=== PATIENT | female | born 1940 ===

== ENCOUNTER 2018-01-25 11:35 | Emergency (ER) | payer MEDICARE, MEDICAID ==
[2018-01-25 11:38] VITALS: TEMP 98; BMI 23.3
--- NOTE | 2018-01-25 12:23 | ED PDOC ---
Arrival/HPI - General Chief Complaint: Hip Pain Time Seen by Provider: 01/25/18 11:51 Historian: Patient, Inseamer (Tosha Young) - History of Present Illness Narrative History of Present Illness (Text): 77 y/o female presents to the ED complaining of constant right hip pain, onset two weeks ago. Patient states pain is worse with movement. Patient states she was seen at [facility] yesterday for the same symptoms where an x-ray was done and an injection was given for pain. Patient was sent home with a lidocaine patch. Patient states she is here today because she feels more comfortable being treated here. Patient is able to ambulate in the ED. Denies trauma. PMD: Dr. Bridges Past Medical History - Past History Past History: No Previous - Reproductive Menopause: No - Past Medical History Past Medical History: No Previous - Cardiac Hx Hypertension: Yes - Endocrine/Metabolic Hx Diabetes Mellitus Type 2: Yes - Psychiatric Hx Substance Use: No - Past Surgical History Past Surgical History: No Previous - Anesthesia Hx Anesthesia: No Family/Social History - Physician Review Nursing Documentation Reviewed: Yes Family/Social History: Unknown Family HX Smoking Status: Never Smoked Hx Alcohol Use: No Hx Substance Use: No Allergies/Home Meds Allergies/Adverse Reactions: Allergies No Known Allergies Allergy (Verified 01/25/18 12:18) Review of Systems - Physician Review All systems were reviewed & negative as marked: Yes - Review of Systems Musculoskeletal: Other (Right hip pain) Physical Exam Vital Signs Reviewed: Yes Vital Signs Temp Pulse BP Pulse Ox 01/25/18 11:37 98 F 63 148/62 97 - Systems Exam Head: Present: Atraumatic, Normocephalic Pupils: Present: PERRL Extroacular Muscles: Present: EOMI Conjunctiva: Present: Normal Neck: Present: Normal Range of Motion Respiratory/Chest: Present: Clear to Auscultation, Good Air Exchange. No: Respiratory Distress, Accessory Muscle Use Cardiovascular: Present: Regular Rate and Rhythm. No: Murmurs Abdomen: No: Tenderness Upper Extremity: Present: Normal Inspection Lower Extremity: Present: Normal Inspection, Normal ROM (at the hip), Tenderness (to the right lateral hip). No: Edema, CALF TENDERNESS Neurological: Present: Speech Normal, Gait Normal Skin: Present: Warm, Dry, Normal Color Psychiatric: Present: Alert, Oriented x 3 Medical Decision Making ED Course and Treatment: Time: 1218 Plan: -- Hip Right [Hip Min 2V w/ Pelvis RT] Time: 1233 HIP/PELVIS XR RESULTS FINDINGS: There are no osseous abnormalities to suggest fracture. The pelvic ring is intact. Preserved femoral-acetabular relationship. Negative study for protrusio , subluxation or dislocation. Degenerative changes: Mild and unchanged IMPRESSION: No acute findings related to/accounting for the clinical presentation. No significant interval change compared to the prior examination(s). Time: 1506 -- Toradol 30 mg IM ___ Scribe Attestation: Documented by Bessie Schwarz acting as a scribe for Dr. Renata Schumacher MD. Provider Scribe Attestation: All medical record entries made by the Scribe were at my direction and personally dictated by me. I have reviewed the chart and agree that the record accurately reflects my personal performance of the history, physical exam, medical decision making, and the department course for this patient. I have also personally directed, reviewed, and agree with the discharge instructions and disposition. 01/25/18 14:35 01/25/18 14:36 01/25/18 15:50 - RAD Interpretation Radiology Orders: 01/25/18 12:18 Hip Right [HIP MIN 2V W/ PELVIS RT] [RAD] Stat - Medication Orders Current Medication Orders: Discontinued Medications Ketorolac Tromethamine (Toradol) 30 mg IM STAT STA Stop: 01/25/18 15:07 Last Admin: 01/25/18 15:17 Dose: 30 mg MAR Pain Assessment Document 01/25/18 15:17 TD (Rec: 01/25/18 15:19 TD [id number]) Pain Reassessment Is this a pain reassessment? Yes Sleep Is patient sleeping during reassessment? No Presence of Pain Presence of Pain Yes Pain Scale Used Pain Scale Used Numeric Location Left, Right or Bilateral Right Pain Location Body Site Hip Description Description Intermittent Pain Behavior Moaning IM Administration Charges Document 01/25/18 15:17 TD (Rec: 01/25/18 15:19 TD [id number]) Injection Site MAR Injection Site Right Gluteus Medius Charges for Administration # of IM Administrations 1 Disposition/Present on Arrival - Disposition Diagnosis: Hip pain Disposition: HOME/ ROUTINE Disposition Time: 15:20 Patient Problems: Current Active Problems Problem Status Onset Hip pain Acute Condition: STABLE Discharge Instructions (ExitCare): Hip Pain Print Language: J[place] Prescriptions: Naproxen [Naprosyn] 500 mg PO BID PRN #15 tablet PRN Reason: Pain, Moderate (4-7) Referrals: López Avila MD [Family Provider] - Forms: Knowrom (Lao)
--- NOTE | 2018-01-25 14:25 | RAD ---
Date of service: 01/25/2018 PROCEDURE: Pelvis and right hip HISTORY: Pain. No history of recent/ related trauma provided COMPARISON: 12/30/2017 TECHNIQUE: Standard protocol for this study/examination. FINDINGS: There are no osseous abnormalities to suggest fracture. The pelvic ring is intact. Preserved femoral-acetabular relationship. Negative study for protrusio, subluxation or dislocation. Degenerative changes: Mild and unchanged IMPRESSION: No acute findings related to/accounting for the clinical presentation. No significant interval change compared to the prior examination(s).
[2018-01-25 16:12] VITALS: BP 135/88; PULSE 69; RESP 18; O2SAT 99
== END 2018-01-25 16:12 | disposition home or self-care (01) ==
LOC: H.ER 11:35
DX: M25.551 Pain in right hip (principal); E11.9 Type 2 diabetes mellitus without complications; I10 Essential (primary) hypertension
CPT/HCPCS: 73502; 96372; 99283; J1885

== ENCOUNTER 2018-01-30 07:41 | Day surgery (SDC) | payer MEDICARE, MEDICAID ==
[2018-01-29 14:07] VITALS: BMI 24.7
[2018-01-30] MEDS ORDERED: Lactated Ringer's 1,000 ML IV ONE (09:00)
[2018-01-30] MEDS ORDERED: Lidocaine 2% MPF (5 ml) Inj ONE (09:40)
[2018-01-30] MEDS ORDERED: methylPREDNISolone Depo 80 mg/ml Inj ONE (09:40)
[2018-01-30] MEDS ORDERED: Bupivacaine HCl 0.25% PF (30 ml) Inj ONE (09:41)
[2018-01-30] MEDS ORDERED: Iohexol 300 10 ML ONE (09:41)
[2018-01-30] MEDS ORDERED: Midazolam 2 MG/2 ML VIAL ONE (09:50)
[2018-01-30] MEDS ORDERED: Propofol 10 mg/ml Inj (20 ML) ONE (09:50)
[2018-01-30] MEDS ORDERED: Bupivacaine HCl 0.25% PF (30 ml) Inj IJ ONE (09:50)
[2018-01-30] MEDS ORDERED: Lidocaine 2% MPF (5 ml) Inj INJ ONE (09:50)
[2018-01-30] MEDS ORDERED: methylPREDNISolone Depo 80 mg/ml Inj IM ONE (09:50)
[2018-01-30] MEDS ORDERED: Iohexol 300 10 ML IJ ONE (09:50)
[2018-01-30] MEDS ORDERED: Lactated Ringer's 1,000 ML IV SCH (10:15)
[2018-01-30 12:03] VITALS: O2SAT 95
[2018-01-30 12:04] VITALS: BP 149/66; PULSE 63; RESP 15; TEMP 97.4
--- NOTE | 2018-01-30 20:15 | OP ---
Copied To: Carmelo Melo MD Attending MD: Carmelo Melo MD PROCEDURE DATE: 01/30/2018 PREOPERATIVE DIAGNOSIS: Lumbar radiculopathy. POSTOPERATIVE DIAGNOSIS: Lumbar radiculopathy. PROCEDURE: Right L4-L5 and L5-S1 transforaminal epidural steroid injection. ANESTHESIOLOGIST: Dr. Ozuna SURGEON: Carmelo Melo MD TYPE OF ANESTHESIA: Monitored anesthesia care. COMPLICATIONS: None. SPECIMEN: None. DESCRIPTION OF PROCEDURE: As follows: After we had discussion of the procedure with the patient including its risks, benefits, alternatives, outcome data, and possibility of no effect or increased pain, the patient consented to the procedure. She denied any recent infection, bleeding tendencies, or being on anticoagulants. Decision was then made to proceed to the OR. The patient was placed on the fluoroscopy table in a prone position with two pillows underneath her abdomen. The back was prepped and draped in the usual sterile fashion, and a sterile technique was adhered to during the entire procedure. The L4 and L5 vertebral levels were first identified in the anteroposterior view. Angulation towards the right at approximately 20 degrees was used to maximize the visualization of the right L4 and L5 pedicles. The skin overlying the 6 o'clock position of both pedicles was then infiltrated with 1% lidocaine using a 25-gauge needle. Subsequently, a 22-gauge 5-inch spinal needle was then incrementally advanced under fluoroscopic guidance until the tip of needle walked into the intervertebral foramen. After satisfactory positioning of both needles, approximately 0.5 mL of Isovue contrast was injected showing appropriate epidural nerve root spread without any signs of CSF or intravenous involvement. The patient denies any paresthesia or pain during the injection. At this point, approximately 3 mL of 0.25% Marcaine and Depo-Medrol mixture was injected. The needle was then removed and the patient's back was cleaned and dry bandages were applied. The patient was then transferred to the recovery area in good condition without any signs of HEARINGS REPORTER toxicity or any neurological deficit. She will be following up in the office in approximately two to four weeks. Carmelo Melo MD [facility] # [id number]
--- NOTE | 2018-02-02 17:00 | RAD ---
Date of service: 01/30/2018 PROCEDURE: Lumbar Epidural Injection HISTORY: PAIN MANAGEMENT TECHNIQUE: Fluoroscopic guidance was provided for epidural injection for pain management purposes. FINDINGS: Total time of fluoroscopy was 20.6 seconds. Cumulative dose was 5.92 mGy. IMPRESSION: Fluoroscopic guidance provided for epidural injection. Please refer to the report from PAULINA Root for further elaboration on the procedure.
== END 2018-01-30 13:00 | disposition home or self-care (01) ==
LOC: H.OPSURG 07:41
PROVIDERS: ATTEND Anesthesiology
DX: M54.16 Radiculopathy, lumbar region (principal); E11.9 Type 2 diabetes mellitus without complications; I10 Essential (primary) hypertension; M19.90 Unspecified osteoarthritis, unspecified site
CPT/HCPCS: 64483; 64484; 82948; J1040; J2250; J2704; J3010; J7120; Q9967

== ENCOUNTER 2018-02-14 15:47 | Emergency (ER) | payer MEDICARE, MEDICAID ==
[2018-02-14 15:47] VITALS: BMI 24.7
[2018-02-14 16:01] VITALS: RESP 16; O2SAT 98
[2018-02-14 18:05] LABS: BASO # 0.1 K/uL (0.0-0.2); BASO % 0.8 % (0.0-2.0); EOS # 0.1 K/uL (0.0-0.7); EOS % 0.6 % (0.0-4.0); HEMOGLOBIN 12.2 g/dL (12.0-16.0); LYMPH # 2.2 K/uL (1.0-4.3); LYMPH % 21.4 % (20.0-40.0); MEAN CELL VOLUME 86.5 fl (81.0-99.0); MEAN CORPUSCULAR HGB CONC 33.5 g/dL (33.0-37.0); MEAN PLATELET VOLUME 9.6 fl (7.2-11.7); MONO # 0.7 K/uL (0.0-0.8); MONO % 7.2 % (0.0-10.0); NEUT # 7.2 K/uL (1.8-7.0); RBC 4.22 Mil/uL (3.80-5.20); RED CELL DISTRIBUTION WIDTH 13.4 % (11.5-14.5); WHITE BLOOD COUNT 10.3 K/uL (4.8-10.8)
[2018-02-14 18:13] LABS: BLOOD UREA NITROGEN 20 mg/dl (7-17); CALCIUM 9.7 mg/dL (8.4-10.2); GFR NON-AFRICAN AMERICAN > 60
[2018-02-14] MEDS ORDERED: Sodium Chloride 0.9% 500 ML IV STA (18:26)
--- NOTE | 2018-02-14 18:32 | CT ---
Date of service: 02/14/2018 PROCEDURE: CT HEAD WITHOUT CONTRAST. HISTORY: dizziness COMPARISON: None available TECHNIQUE: Axial computed tomography images were obtained through the head/brain without intravenous contrast. Radiation dose: Total exam DLP = 736.27 mGy-cm. This CT exam was performed using one or more of the following dose reduction techniques: Automated exposure control, adjustment of the mA and/or kV according to patient size, and/or use of iterative reconstruction technique. FINDINGS: HEMORRHAGE: No intracranial hemorrhage. BRAIN: Diffuse atrophy with prominence of the ventricles and sulci noted. No mass effect or edema. Intracranial atherosclerosis. Mild scattered white matter hypodensities, which are nonspecific, but often seen with chronic microvascular ischemic disease. Please note that MRI with diffusion imaging is more sensitive in the detection of acute ischemic event. VENTRICLES: No hydrocephalus. CALVARIUM: Unremarkable. PARANASAL SINUSES: Mucosal thickening of the ethmoid air cells. MASTOID AIR CELLS: Unremarkable as visualized. No inflammatory changes. OTHER FINDINGS: None. IMPRESSION: Generalized atrophy. Nonspecific white matter changes. Mild mucosal thickening of the ethmoid air cells.
[2018-02-14 19:37] VITALS: BP 141/53; PULSE 64; TEMP 98.6
--- NOTE | 2018-02-14 19:44 | ED PDOC ---
HPI: General Adult Time Seen by Provider: 02/14/18 16:23 Chief Complaint (Nursing): Dizziness/Lightheaded Chief Complaint (Provider): Dizziness History Per: Patient History/Exam Limitations: no limitations Onset/Duration Of Symptoms: Days Current Symptoms Are (Timing): Still Present Additional Complaint(s): 77 year old female presents to the ED for an evaluation of intermittent episodes of dizziness onset for 2 weeks. She reports the dizziness occurs when she walks mostly. Patient was given medicine by PMD that was helping her but she ran out of the medicine so the dizziness started again. She also reports of nausea. Patient denies chest pain, syncope, headache, fever, weakness, numbness or vomiting, abdominal pain or diarrhea. PMD: López Avila Past Medical History Reviewed: Historical Data, Nursing Documentation, Vital Signs Vital Signs: Last Vital Signs Temp 98.6 F 02/14/18 19:35 Pulse 64 02/14/18 19:35 Resp 16 02/14/18 19:35 BP 141/53 L 02/14/18 19:35 Pulse Ox 98 02/14/18 19:48 - Medical History PMH: Arthritis (general), Diabetes, HTN Denies: Chronic Kidney Disease - Surgical History Surgical History: No Surg Hx - Family History Family History: States: Unknown Family Hx - Social History Current smoker - smoking cessation education provided: No Alcohol: None Drugs: Denies - Home Medications Home Medications: Ambulatory Orders Medication Instructions Recorded Naproxen [Naprosyn] 500 mg PO BID PRN #15 tablet 01/25/18 Gabapentin [Neurontin] 300 mg PO DAILY 01/29/18 Levothyroxine [Synthroid] 25 mcg PO DAILY 01/29/18 Losartan [Cozaar] 100 mg PO DAILY 01/29/18 metFORMIN [glucOPHAGE] 500 mg PO BID 01/29/18 Aspirin [Adult Low Dose Aspirin EC] 81 mg PO DAILY 01/30/18 Atorvastatin [Lipitor] 40 mg PO DAILY 01/30/18 Cholecalciferol (Vitamin D3) 50,000 units PO QWK 01/30/18 [Optimal D3] Famotidine [Pepcid] 40 mg PO DAILY 01/30/18 Ferrous Sulfate [Feosol] 325 mg PO DAILY 01/30/18 Metoprolol Succinate [Metoprolol 100 mg PO DAILY 01/30/18 Succinate] Tramadol HCl [Ultram] 50 mg PO Q4 01/30/18 Vit D3-Vit K/Berberine/Hops 1 each PO 01/30/18 [Ostera Tablet] amLODIPine [Norvasc] 5 mg PO HS 01/30/18 Meclizine [Meclizine*] 25 mg PO Q6 #30 tab 02/14/18 - Allergies Allergies/Adverse Reactions: Allergies Allergy/AdvReac Type Severity Reaction Status Date / Time No Known Allergies Allergy Verified 02/14/18 15:59 Review of Systems ROS Statement: Except As Marked, All Systems Reviewed And Found Negative Cardiovascular: Negative for: Chest Pain Gastrointestinal: Positive for: Nausea. Negative for: Vomiting, Abdominal Pain , Diarrhea Neurological: Positive for: Dizziness. Negative for: Weakness, Numbness, Headache Physical Exam - Reviewed Nursing Documentation Reviewed: Yes Vital Signs Reviewed: Yes - Physical Exam Appears: Positive for: Non-toxic, No Acute Distress Head Exam: Positive for: ATRAUMATIC, NORMAL INSPECTION, NORMOCEPHALIC Skin: Positive for: Normal Color, Warm, Dry Eye Exam: Positive for: Normal appearance, EOMI, PERRL ENT: Positive for: Normal ENT Inspection Neck: Positive for: Normal, Painless ROM, Supple. Negative for: Decreased ROM Cardiovascular/Chest: Positive for: Regular Rate, Rhythm. Negative for: Murmur Respiratory: Positive for: Normal Breath Sounds. Negative for: Decreased Breath Sounds, Wheezing, Respiratory Distress Gastrointestinal/Abdominal: Positive for: Normal Exam, Bowel Sounds, Soft. Negative for: Tenderness, Guarding, Rebound Back: Positive for: Normal Inspection Extremity: Positive for: Normal ROM. Negative for: Tenderness, Pedal Edema, Deformity Neurologic/Psych: Positive for: Alert, Oriented (x3), Gait (steady). Negative for: Motor/Sensory Deficits - Laboratory Results Result Diagrams: 02/14/18 17:02 02/14/18 17:02 - ECG O2 Sat by Pulse Oximetry: 98 (RA) Pulse Ox Interpretation: Normal - Progress Re-evaluation Time: 18:30 Condition: Re-examined, Improved Medical Decision Making Medical Decision Making: Time: 1701 Initial Impression: dizziness Differential Diagnosis includes but is not limited to: peripheral vertigo, central vertigo, orthostatic vertigo Initial Plan: --Head w/o Contrast CT --EKG --BMP --ED Urine Dipstick --CBC w/ Differential --Antivert 25mg --Normal Saline 500mls/hr --Reevaluation Time: 1829 PROCEDURE: CT HEAD WITHOUT CONTRAST. HISTORY: dizziness COMPARISON: None available TECHNIQUE: Axial computed tomography images were obtained through the head/brain without intravenous contrast. Radiation dose: Total exam DLP = 736.27 mGy-cm. This CT exam was performed using one or more of the following dose reduction techniques: Automated exposure control, adjustment of the mA and/or kV according to patient size, and/or use of iterative reconstruction technique. FINDINGS: HEMORRHAGE: No intracranial hemorrhage. BRAIN: Diffuse atrophy with prominence of the ventricles and sulci noted. No mass effect or edema. Intracranial atherosclerosis. Mild scattered white matter hypodensities, which are nonspecific, but often seen with chronic microvascular ischemic disease. Please note that MRI with diffusion imaging is more sensitive in the detection of acute ischemic event. VENTRICLES: No hydrocephalus. CALVARIUM: Unremarkable. PARANASAL SINUSES: Mucosal thickening of the ethmoid air cells. MASTOID AIR CELLS: Unremarkable as visualized. No inflammatory changes. OTHER FINDINGS: None. IMPRESSION: Generalized atrophy. Nonspecific white matter changes. Mild mucosal thickening of the ethmoid air cells. Scribe Attestation: Documented by Alessandro Mackey, acting as a scribe for Carrillo Meade MD. Provider Scribe Attestation: All medical record entries made by the Scribe were at my direction and personally dictated by me. I have reviewed the chart and agree that the record accurately reflects my personal performance of the history, physical exam, medical decision making, and the department course for this patient. I have also personally directed, reviewed, and agree with the discharge instructions and disposition. Disposition - Clinical Impression Clinical Impression: Dizziness, Hyponatremia - Patient ED Disposition Is Patient to be Admitted: No Doctor Will See Patient In The: Office Counseled Patient/Family Regarding: Studies Performed, Diagnosis, Need For Followup - Disposition Referrals: López Avila MD [Family Provider] - Disposition: Routine/Home Disposition Time: 18:30 Condition: GOOD Additional Instructions: THEODORA SARGENT, thank you for letting us take care of you today. Your provider was Deshaun Vizcaino MD and you were treated for DIZZINESS, VOMITING. The emergency medical care you received today was directed at your acute symptoms. If you were prescribed any medication, please fill it and take as directed. It may take several days for your symptoms to resolve. Return to the Emergency Department if your symptoms worsen, do not improve, or if you have any other problems. Please contact your doctor or call one of the physicians/clinics you have been referred to that are listed on the Patient Visit Information form that is included in your discharge packet. Bring any paperwork you were given at discharge with you along with any medications you are taking to your follow up visit. Our treatment cannot replace ongoing medical care by a primary care provider outside of the emergency department. Thank you for allowing the [facility] team to be part of your care today. If you had an X-Ray or CT scan: A Radiologist will review the ED reading if any change in treatment is needed we will contact you. If you had a blood, urine, or wound culture: It will take several days for the results, if any change in treatment is needed we will contact you. If you had an STI test: It will take 48 hours for the results. Please call after 1 week if you have not heard back. Prescriptions: Meclizine [Meclizine*] 25 mg PO Q6 #30 tab Instructions: Vertigo (a Type of Dizziness), Hyponatremia (DC) Print Language: CITIZEN OF [place]
--- NOTE | 2018-02-15 07:39 | CARD ---
APPROVED REPORT Date of service: 02/14/2018 EKG Measurement Heart [id number] <Conclusion> Normal sinus rhythm Minimal voltage criteria for LVH, may be normal variant Nonspecific ST abnormality Abnormal ECG
== END 2018-02-14 19:30 | disposition home or self-care (01) ==
LOC: H.ER 15:47
DX: R42 Dizziness and giddiness (principal); E87.1 Hypo-osmolality and hyponatremia; E11.9 Type 2 diabetes mellitus without complications; I10 Essential (primary) hypertension; Z79.84 Long term (current) use of oral hypoglycemic drugs
CPT/HCPCS: 70450; 80048; 85025; 93005; 96360; 99285; J7030